=== PATIENT | male | born 1945 | race Caucasian/White ===

== ENCOUNTER → 2017-08-18 | Outpatient (CLI) | payer MEDICARE ==
[~2017-08-18] MED LIST: HYDR-3240 PO; HYDR-3241 PO; OXYCONTIN PO; TIZA4TAB9 PO; ZANAFLEX PO
[2017-08-18 14:24] LABS: WHITE BLOOD COUNT 8.8 x10^3/uL (3.4-10)
[2017-08-18 14:40] LABS: BLOOD UREA NITROGEN 17 mg/dL (7-18)
[2017-08-28 07:27] LABS: HEMATOCRIT 45.1 % (39.2-51.8); HEMOGLOBIN 15.5 g/dL (13.7-18.0)
== END | disposition home or self-care (01) ==
LOC: EDSEX → STAR 12:42
PROVIDERS: ATTEND Neurological Surgery
DX: Z01.818 Encounter for other preprocedural examination (principal); M51.26 Other intervertebral disc displacement, lumbar region
CPT/HCPCS: 36415; 71020; 80048; 85025; 85610; 85730; 93005

== ENCOUNTER 2017-08-24 10:49 | Inpatient (IN) | payer MEDICARE ==
[~2017-08-24] VITALS: Ht 177.8 cm; Wt 110.0 kg
[~2017-08-24 10:49] MED LIST changes: +BUPIVACAINE/PF 0.5% ONE; -HYDR-3240 PO; -HYDR-3241 PO; -TIZA4TAB9 PO
[2017-08-24] MEDS ORDERED: THROMBIN 5,000 UNIT VIAL TP ONE (10:50)
[2017-08-24] MEDS ORDERED: BACITRACIN 50,000 UNIT ONE (10:50)
[2017-08-24 11:23] VITALS: BP 135/89
[2017-08-24] MEDS ORDERED: LACTATED RINGERS 1,000 ML IV SCH (11:26)
[2017-08-24] MEDS ORDERED: HYDR-3241 PO (11:27)
[2017-08-24] MEDS ORDERED: TIZA4TAB9 PO (11:27)
[2017-08-24] MEDS ORDERED: PROPOFOL 10 MG/ML, 20ML ONE (14:52)
[2017-08-24] MEDS ORDERED: SUCCINYLCHOLINE 20 MG/ML, 10ML ONE (14:52)
[2017-08-24] MEDS ORDERED: ONDANSETRON 2MG/ML, 2ML ONE (14:52)
[2017-08-24] MEDS ORDERED: ROCURONIUM 10 MG/ML ONE (14:52)
[2017-08-24] MEDS ORDERED: DEXAMETHASONE 4 MG/ML, 1ML ONE (14:52)
[2017-08-24] MEDS ORDERED: CLINDAMYCIN 150 MG/ML, 6ML ONE (14:54)
[2017-08-24] MEDS ORDERED: FENTANYL PF 250 MCG/5ML ONE (14:54)
[2017-08-24] MEDS ORDERED: HYDROmorphone 1 MG/ML, 1ML ONE (14:54)
[2017-08-24] MEDS ORDERED: MIDAZOLAM 1 MG/ML, 2ML IV PRN (16:00)
[2017-08-24] MEDS ORDERED: LABETALOL 5MG/ML, 20ML IV PRN (16:00)
[2017-08-24] MEDS ORDERED: HYDROmorphone 1 MG/ML, 1ML IV PRN (16:00)
[2017-08-24] MEDS ORDERED: PROMETHAZINE 25 MG/ML, 1ML IV PRN (16:00)
[2017-08-24] MEDS ORDERED: OXYcodone 5 MG/5 ML ORAL.SOL UDC PO PRN (16:00)
[2017-08-24] MEDS ORDERED: ONDANSETRON 2MG/ML, 2ML IVPush PRN (16:00)
[2017-08-24] MEDS ORDERED: hydrALAzine 20 MG/ML, 1ML IV PRN (16:00)
[2017-08-24] MEDS ORDERED: FENTANYL PF 100 MCG/2ML IV PRN (16:00)
[2017-08-24] MEDS ORDERED: VANCOMYCIN 1,000 MG ONE (16:43)
[2017-08-24] MEDS ORDERED: OXYcodone 5 MG/5 ML ORAL.SOL UDC ONE (16:48)
[2017-08-24] MEDS ORDERED: ACETAMINOPHEN 650 MG/20.3 ML UDC ONE (16:48)
[2017-08-24] MEDS ORDERED: DIPHENHYDRAMINE 50 MG/ML, 1ML ONE (17:26)
[2017-08-24 18:00] VITALS: BP 152/93
[2017-08-24] MEDS ORDERED: DIPHENHYDRAMINE 50 MG/ML, 1ML IVPush ONE (18:00)
[2017-08-24] MEDS ORDERED: HYDROmorphone 2MG TABLET PO PRN (18:30)
[2017-08-24] MEDS ORDERED: OXYcodone/APAP 5/325MG TABLET PO PRN (18:45)
[2017-08-24] MEDS ORDERED: METHOCARBAMOL 750 MG TABLET PO PRN (19:00)
[2017-08-24] MEDS ORDERED: HYDROmorphone 1 MG/ML, 1ML IM PRN (19:00)
[2017-08-24] MEDS ORDERED: ONDANSETRON 2MG/ML, 2ML IV PRN (19:00)
[2017-08-24] MEDS ORDERED: DIPHENHYDRAMINE 50 MG CAPSULE PO PRN (19:00)
[2017-08-24] MEDS ORDERED: DIPHENHYDRAMINE 50 MG/ML, 1ML IM PRN (19:00)
[2017-08-24] MEDS ORDERED: BISACODYL 10 MG SUPP PR PRN (19:00)
[2017-08-24] MEDS ORDERED: HYDROcodone/APAP 5/325 TABLET PO PRN (19:00)
[2017-08-24] MEDS ORDERED: MAGNESIUM HYDROXIDE 8%, 30ML UDC PO PRN (19:00)
[2017-08-24] MEDS ORDERED: NS + 20MEQ KCL 1,000 ML IV SCH (19:00)
[2017-08-24] MEDS ORDERED: DIPHENHYDRAMINE 50 MG/ML, 1ML IVPush PRN (19:00)
[2017-08-24] MEDS ORDERED: PROMETHAZINE 25 MG/ML, 1ML IM PRN (19:00)
[2017-08-24] MEDS ORDERED: ZOLPIDEM 5MG TABLET PO PRN (21:00)
[2017-08-24] MEDS: TIZANIDINE 4MG TABLET PO SCH (22:50)
[2017-08-25 00:15] VITALS: BP 96/63
[2017-08-25] MEDS ORDERED: VANCOMYCIN PMX 1GM/200ML 200 ML IV ONE (02:00)
[2017-08-25 04:00] VITALS: BP 118/70
[2017-08-25 07:24] VITALS: BP 115/75
[2017-08-25] MEDS: TIZANIDINE 4MG TABLET PO SCH (08:41)
[2017-08-25] MEDS ORDERED: SENNA/DOCUSATE TABLET PO SCH (09:00)
[2017-08-25] MEDS ORDERED: HYDR-3240 PO (09:10)
[2017-08-25 10:43] VITALS: BP 109/72
== END 2017-08-25 12:30 | disposition home or self-care (01) | DRG 519 ==
LOC: OUT 10:49 → EDSEX 10:49 → 4NOR 17:58 → OUT 18:35 → DCLOUNGE 08-25 12:04
PROVIDERS: ADMIT Neurological Surgery; ATTEND Neurological Surgery
PROC: 01NB0ZZ Release Lumbar Nerve, Open Approach (ICD-10-PCS; 2017-08-24)
PROC: 0SB20ZZ Excision of Lumbar Vertebral Disc, Open Approach (ICD-10-PCS; principal; 2017-08-24 14:00)
DX: M48.061 Spinal stenosis, lumbar region without neurogenic claudication (principal); E44.1 Mild protein-calorie malnutrition; M51.16 Intervertebral disc disorders with radiculopathy, lumbar region; R20.2 Paresthesia of skin; Z88.8 Allergy status to other drugs, medicaments and biological substances
CPT/HCPCS: 72100; J1100; J1170; J2270; J2405; J2704; J3010; J3370; J3490; J0330; J7120